=== PATIENT | male | born 1970 ===

== ENCOUNTER 2021-10-28 22:17 | Emergency (ER) | payer BC ==
[2021-10-28 23:22] LABS: Urine Blood Negative (Negative); Urine Glucose Negative (Negative); Urine Protein Negative (Negative); Urine Specific Gravity >=1.030 (1.005-1.030); Urine pH 5.5 (5.0-7.0)
[2021-10-28 23:28] LABS: Absolute Lymphocytes (CBC) 2.4 K/uL (0.7-4.9); Hematocrit 45.5 % (39.6-49.0); Lymphocytes % 32.4 % (15.3-44.8); MPV 7.9 fL (7.6-11.3); Protime INR 0.99; RBC Red Blood Cell Count 5.83 M/uL (4.33-5.43)
[2021-10-28 23:53] LABS: ALT/SGPT 42 U/L (12-78); AST/SGOT 17 U/L (15-37); Albumin 3.5 g/dL (3.4-5.0); Alkaline Phosphatase 61 U/L (45-117); BUN Blood Urea Nitrogen 17 mg/dL (7-18); Bicarbonate 27 mmol/L (21-32); Bilirubin Total 0.3 mg/dL (0.2-1.0); Glomerular Filtration Rate 101 ml/min (=/>90); Glucose Level 150 mg/dL (74-106); Magnesium 2.1 mg/dL (1.8-2.4); NT PRO-BNP 9 pg/mL (<125); Potassium 3.8 mmol/L (3.5-5.1); Protein, Total 7.1 g/dL (6.4-8.2); Sodium Level 141 mmol/L (136-145); Troponin High Sensitivity 3.1 pg/mL (<58.9)
[2021-10-29 00:05] LABS: Bilirubin Direct < 0.1 mg/dL (0-0.2)
--- NOTE | 2021-10-29 01:09 | ER ---
Nurse's Notes [facility] Name: Thompson Torres Age: 50 yrs Sex: Male : 1970 Arrival Date: 10/28/2021 Time: 22:20 Bed 15 Private MD: Diagnosis: Palpitations Presentation: 10/28 22:34 Chief complaint: Patient states: Reports since having COVID in September, his average HR has lp1 increased from 70 to 85; States he has been uncomfortable at night, unable to sleep, concerned about his heart after COVID; Reports friend has recently needed a cardioversion after having COVID. Coronavirus screen: At this time, the client does not indicate any symptoms associated with coronavirus-19. Ebola Screen: No symptoms or risks identified at this time. Initial Sepsis Screen: Does the patient meet any 2 criteria? No. Patient's initial sepsis screen is negative. Does the patient have a suspected source of infection? No. Patient's initial sepsis screen is negative. Risk Assessment: Do you want to hurt yourself or someone else? Patient reports no desire to harm self or others. Onset of symptoms was October 28, 2021. 22:34 Method Of Arrival: Ambulatory lp1 22:34 Acuity: TRINI 3 lp1 Historical: - Allergies: 22:36 No Known Allergies; lp1 - Home Meds: 22:37 Fenofibrate [Active]; lp1 - PMHx: 22:37 Hyperlipidemia; lp1 - PSHx: 22:37 None; lp1 - Immunization history:: Adult Immunizations up to date, Client reports receiving the 2nd dose of the Covid vaccine. - Social history:: Smoking status: Patient denies any tobacco usage or history of. Screenin:15 Abuse screen: Denies threats or abuse. Nutritional screening: No deficits noted. fu Tuberculosis screening: No symptoms or risk factors identified. Fall Risk None identified. Assessment: 23:11 General: Appears in no apparent distress. Behavior is calm, cooperative, appropriate fu for age, Reports being uneasy. Pain: Denies pain. Neuro: Level of Consciousness is awake, alert, obeys commands, Oriented to person, place, time, situation, Oncology [employer] Rn are equal bilaterally Moves all extremities. Gait is steady, Speech is normal, Facial symmetry appears normal. Cardiovascular: Reports elevated heart rate Denies chest pain, nausea, vomiting. Respiratory: Respiratory effort is even, unlabored, Respiratory pattern is regular. : No signs and/or symptoms were reported regarding the genitourinary system. Derm: Skin is intact. Musculoskeletal: No signs and/or symptoms reported regarding the musculoskeletal system. 10/29 00:35 Reassessment: No changes from previously documented assessment. Patient is alert, fu oriented x 3, equal unlabored respirations, skin warm/dry/pink. Vital Signs: 10/28 22:34 BP 151 / 98; Pulse 94; Resp 18; Temp 98.4(O); Pulse Ox 96% on R/A; Weight 80.29 kg (R); lp1 Height 5 ft. 10 in. (177.80 cm); Pain 0/10; 23:26 BP 134 / 83; Pulse 87; Resp 16; Temp 98.7; Pulse Ox 94% on R/A; Pain 0/10; fu 10/29 00:15 BP 138 / 90; Pulse 83; Resp 13; Pulse Ox 94% on R/A; Pain 0/10; fu 01:00 BP 129 / 86; Pulse 80; Resp 15; Pulse Ox 98% on R/A; Pain 0/10; fu 10/28 22:34 Body Mass Index 25.40 (80.29 kg, 177.80 cm) lp1 ED Course: 10/28 22:20 Patient arrived in ED. bp1 22:31 Moises Juarez MD is Attending Physician. mh7 22:36 Triage completed. lp1 22:36 Arm band placed on. lp1 22:56 Cody Ryan RN is Primary Nurse. fu 23:15 Inserted saline lock: 20 gauge in left antecubital area, using aseptic technique. Blood fu collected. 23:21 XRAY Chest (1 view) In Process Unspecified. EDMS 10/29 01:09 Jens Carey MD is Referral Physician. mh7 01:20 Patient has correct armband on for positive identification. Placed in gown. Bed in low lp1 position. Call light in reach. Side rails up X 1. fast food cook on. Pulse ox on. NIBP on. 01:25 No provider procedures requiring assistance completed. IV discontinued, bleeding lp1 controlled, Pressure dressing applied. Administered Medications: No medications were administered Medication: 10/28 22:37 VIS not applicable for this client. lp1 Outcome: 10/29 01:09 Discharge ordered by . [email or web address] 01:25 Discharged to home ambulatory. lp1 01:25 Condition: good 01:25 Discharge instructions given to patient, Instructed on discharge instructions, follow up and referral plans. Demonstrated understanding of instructions, follow-up care, Prescriptions given X 0 01:27 Patient left the ED. lp1 Signatures: Dispatcher [employer] EDKristine Canchola RN RN [facility] Cody Ryan RN RN fu [place]ia[place], Brittany bp1 Holmes, Maurice, MD MD 7
--- NOTE | 2021-10-29 01:09 | EDPHYS ---
Physician Documentation [facility] Name: Thompson Torres Age: 50 yrs Sex: Male : 1970 Arrival Date: 10/28/2021 Time: 22:20 Bed 15 Private MD: ED Physician Moises Juarez HPI: 10/28 22:40 This 50 yrs old Male presents to ER via Ambulatory with complaints of Elevated Heart mh7 Rate. 22:40 The patient presents with a history of heart racing. Context: The symptoms occur at mh7 rest. 22:40 Onset: The symptoms/episode began/occurred 1 week(s) ago. mh7 22:40 Duration: The patient or guardian reports multiple episodes, that are intermittent, mh7 that wax and wane, with no pattern. Modifying factors: The symptoms are aggravated by nothing. The symptoms are alleviated by nothing. 22:40 Associated signs and symptoms: Pertinent negatives: anxiety, chest pain, cough, fever, mh7 lightheadedness, nausea, SOB, syncope, near-syncope, unusual stressors, vertigo, vomiting. 22:40 Severity of symptoms: At their worst the symptoms were moderate 3 day(s) ago, in the [facility] emergency department the symptoms have improved moderately. Historical: - Allergies: 22:36 No Known Allergies; lp1 - Home Meds: 22:37 Fenofibrate [Active]; lp1 - PMHx: 22:37 Hyperlipidemia; lp1 - PSHx: 22:37 None; lp1 - Immunization history:: Adult Immunizations up to date, Client reports receiving the 2nd dose of the Covid vaccine. - Social history:: Smoking status: Patient denies any tobacco usage or history of. ROS: 22:40 Constitutional: Negative for fever, chills, and weight loss, Eyes: Negative for injury, mh7 pain, redness, and discharge, ENT: Negative for injury, pain, and discharge, Neck: Negative for injury, pain, and swelling, Respiratory: Negative for shortness of breath, cough, wheezing, and pleuritic chest pain, Abdomen/GI: Negative for abdominal pain, nausea, vomiting, diarrhea, and constipation, Back: Negative for injury and pain, : Negative for injury, bleeding, discharge, and swelling, MS/Extremity: Negative for injury and deformity, Skin: Negative for injury, rash, and discoloration, Neuro: Negative for headache, weakness, numbness, tingling, and seizure, Psych: Negative for depression, anxiety, suicide ideation, homicidal ideation, and hallucinations, Allergy/Immunology: Negative for hives, rash, and allergies, Endocrine: Negative for neck swelling, polydipsia, polyuria, polyphagia, and marked weight changes, Hematologic/Lymphatic: Negative for swollen nodes, abnormal bleeding, and unusual bruising. Exam: 22:40 Constitutional: This is a well developed, well nourished patient who is awake, alert, mh7 and in no acute distress. Head/Face: Normocephalic, atraumatic. Eyes: Pupils equal round and reactive to light, extra-ocular motions intact. Lids and lashes normal. Conjunctiva and sclera are non-icteric and not injected. Cornea within normal limits. Periorbital areas with no swelling, redness, or edema. Neck: Trachea midline, no thyromegaly or masses palpated, and no cervical lymphadenopathy. Supple, full range of motion without nuchal rigidity, or vertebral point tenderness. No Meningismus. Chest/axilla: Normal chest wall appearance and motion. Nontender with no deformity. No lesions are appreciated. Cardiovascular: Regular rate and rhythm with a normal S1 and S2. No gallops, murmurs, or rubs. Normal PMI, no JVD. No pulse deficits. Respiratory: Lungs have equal breath sounds bilaterally, clear to auscultation and percussion. No rales, rhonchi or wheezes noted. No increased work of breathing, no retractions or nasal flaring. Abdomen/GI: Soft, non-tender, with normal bowel sounds. No distension or tympany. No guarding or rebound. No evidence of tenderness throughout. Back: No spinal tenderness. No costovertebral tenderness. Full range of motion. Skin: Warm, dry with normal turgor. Normal color with no rashes, no lesions, and no evidence of cellulitis. MS/ Extremity: Pulses equal, no cyanosis. Neurovascular intact. Full, normal range of motion. Neuro: Awake and alert, GCS 15, oriented to person, place, time, and situation. Cranial nerves II-XII grossly intact. Motor strength 5/5 in all extremities. Sensory grossly intact. Cerebellar exam normal. Normal gait. Psych: Awake, alert, with orientation to person, place and time. Behavior, mood, and affect are within normal limits. Vital Signs: 22:34 BP 151 / 98; Pulse 94; Resp 18; Temp 98.4(O); Pulse Ox 96% on R/A; Weight 80.29 kg (R); lp1 Height 5 ft. 10 in. (177.80 cm); Pain 0/10; 23:26 BP 134 / 83; Pulse 87; Resp 16; Temp 98.7; Pulse Ox 94% on R/A; Pain 0/10; fu 10/29 00:15 BP 138 / 90; Pulse 83; Resp 13; Pulse Ox 94% on R/A; Pain 0/10; fu 01:00 BP 129 / 86; Pulse 80; Resp 15; Pulse Ox 98% on R/A; Pain 0/10; fu 10/28 22:34 Body Mass Index 25.40 (80.29 kg, 177.80 cm) lp1 MDM: 01:08 Differential diagnosis: arrythmia, dehydration, stress disorder. Data reviewed: vital [facility] signs, nurses notes, lab test result(s), cardiac enzymes, CBC, electrolytes, EKG, radiologic studies, plain films. Data interpreted: Pulse oximetry: on room air is 96 %. Interpretation: normal. Counseling: I had a detailed discussion with the patient and/or guardian regarding: the historical points, exam findings, and any diagnostic results supporting the discharge/admit diagnosis, the presence of at least one elevated blood pressure reading (>120/80) during this emergency department visit, lab results, radiology results, the need for outpatient follow up, to return to the emergency department if symptoms worsen or persist or if there are any questions or concerns that arise at home. Response to treatment: the patient's symptoms have resolved after treatment, the patient's blood pressure is in an acceptable range, mental status has returned to baseline, the patient no longer shows bradycardia, the patient is not short of breath, the patient is not tachycardic, the patient's pain is gone, the patient's temperature has normalized. 01:09 Patient medically screened. [facility] 10/28 22:45 Order name: Basic Metabolic Panel; Complete Time: 00:15 [facility] 10/28 22:45 Order name: CBC with Diff; Complete Time: 23:54 [facility] 10/28 22:45 Order name: D-Dimer; Complete Time: 23:54 7 10/28 22:45 Order name: LFT's; Complete Time: 00:15 7 10/28 22:45 Order name: Magnesium; Complete Time: 00:15 [facility] 10/28 22:45 Order name: NT PRO-BNP; Complete Time: 00:15 7 10/28 22:45 Order name: PT-INR; Complete Time: 23:54 7 10/28 22:45 Order name: Troponin HS; Complete Time: 00:15 7 10/28 22:45 Order name: XRAY Chest (1 view) [facility] 10/28 22:45 Order name: EKG; Complete Time: 22:46 [facility] 10/28 22:45 Order name: Cardiac monitoring; Complete Time: 23:16 [facility] 10/28 22:45 Order name: EKG - Nurse/Tech; Complete Time: 23:16 [facility] 10/28 22:45 Order name: TSH; Complete Time: 00:15 [facility] 10/28 23:23 Order name: Urine Dipstick-Ancillary; Complete Time: 23:54 [facility] 10/28 22:45 Order name: IV Saline Lock; Complete Time: 23:16 7 10/28 22:45 Order name: Labs collected and sent; Complete Time: 23:16 [facility] 10/28 22:45 Order name: O2 Per Protocol; Complete Time: 23:16 [facility] 10/28 22:45 Order name: O2 Sat Monitoring; Complete Time: 23:16 [facility] 10/28 22:45 Order name: Urine Dipstick-Ancillary (obtain specimen); Complete Time: 23:16 [facility] Administered Medications: No medications were administered Disposition Summary: 10/29/21 01:09 Discharge Ordered Location: Home [facility] Problem: new [facility] Symptoms: have improved [facility] Condition: Stable [facility] Diagnosis - Palpitations [facility] Followup: [facility] - With: Private Physician - When: 1 - 2 days - Reason: Worsening of condition, Recheck today's complaints, Continuance of care, Re-evaluation by your physician Followup: [facility] - With: Jens Carey MD - When: 1 - 2 days - Reason: Worsening of condition, Recheck today's complaints Discharge Instructions: - Discharge Summary Sheet [facility] - Palpitations, [id number] [facility] Forms: - Medication Reconciliation Form [facility] - Thank You Letter [facility] - Antibiotic Education [facility] - Prescription Opioid Use [facility] Signatures: Dispatcher [employer] Kristine Fung RN RN lp1 Moises Juarez MD MD [facility]
[2021-10-29 01:40] VITALS: TEMP 98.7
[2021-10-29 01:43] VITALS: BP 129/86; O2SAT 98
--- NOTE | 2021-10-29 17:27 | EKG ---
Test Date: 2021-10-28 Test Time: 22:53:09 Booster Operator: MASON MEASUREMENT RESULTS: Intervals: Rate: 89 CA: 136 QRSD: 94 QT: 364 QTc: 442 [place]: P: 78 CA: 136 QRS: 39 T: 67 INTERPRETIVE STATEMENTS: Normal sinus rhythm Normal ECG No previous ECG available for comparison Electronically Signed On 10-29-21 17:27:06 CDT by Basilio Rae
--- NOTE | 2021-10-31 13:53 | RAD REPORT ---
EXAM DESCRIPTION: RAD - Chest Single View - 10/28/2021 11:19 pm CLINICAL HISTORY: PALPITATIONS. COMPARISON: None. TECHNIQUE: Single view AP chest radiograph(s). FINDINGS: Mild perihilar interstitial thickening. No infiltrate identified. No pleural effusion. No pneumothorax. Nonenlarged cardiomediastinal silhouette. No significant osseous abnormality. IMPRESSION: Mild perihilar interstitial thickening. No infiltrate identified. Electronically signed by: Jasmina Morgan MD 10/28/2021 11:28 PM CDT Due to temporary technical issues with the PACS/Fluency reporting system, reports are being signed by the in house radiologist without review as a courtesy to ensure prompt reporting. The interpreting r adiologist is fully responsible for the content of the report.
== END 2021-10-29 01:27 | disposition home or self-care (01) ==
LOC: ER 22:17
DX: R00.2 Palpitations (principal); E78.5 Hyperlipidemia, unspecified
CPT/HCPCS: 36415; 71045; 80048; 80076; 81003; 83735; 83880; 84443; 84484; 85025; 85379; 85610; 93005; 99284